=== PATIENT | male | born 1960 | race Caucasian/White ===

== ENCOUNTER 2024-11-14 08:13 | Outpatient (REF) | payer OTHER, SELFPAY ==
--- OUTSIDE RECORDS SUMMARY | 2024-11-14 08:32 | XMS_ITS ---
Author Name [facility] Organization Unknown History of Medication Use Medication Directions Dispensed Refills Start Date End Date Stat meloxicam (MOBIC) 15 MG tablet Take 1 tablet (15 mg total) by mouth daily. 03/06/2024 active gabapentin (NEURONTIN) 300 MG capsule Take 2 capsules (600 mg total) by mouth nightly. 09/12/2023 active valsartan (DIOVAN) 40 MG tablet Take 1 tablet (40 mg total) by mouth every evening. 08/26/2023 active methocarbamol (ROBAXIN) 750 MG tablet Take 1 tablet (750 mg total) by mouth 2 times a day. 09/12/2023 active sildenafil (VIAGRA) 100 MG tablet Take 1 tablet (100 mg total) by mouth daily as needed. 08/26/2023 active OMEprazole 20 MG Tablet Delayed Response Take 20 mg by mouth as needed. 08/26/2023 active tamsulosin (FLOMAX) 0.4 MG capsule Take 1 capsule (0.4 mg total) by mouth daily. 09/17/2023 active Vitamin D3 (CHOLECALCIFEROL) 50 MCG (2000 UT) tablet Take 2 tablets (4,000 Units total) by mouth daily. 09/12/2023 active zinc sulfate (ZINCATE) 220 mg capsule Take 1 capsule (220 mg total) by mouth daily. 09/12/2023 active calcium carbonate (Calcium 600) 600 MG tablet Take 1 tablet (600 mg total) by mouth 2 (two) times a day with meals. 09/12/2023 active acetaminophen (TYLENOL) 500 MG tablet Take 2 tablets (1,000 mg total) by mouth 3 (three) times a day with meals. 09/12/2023 active rivaroxaban (XARELTO) 10 MG tablet Take 1 tablet (10 mg total) by mouth daily. Take after surgery as directed to prevent blood clots 09/12/2023 active acetaminophen (TYLENOL) 325 MG tablet Take 3 tablets (975 mg total) by mouth 4 (four) times a day as needed for mild pain. 09/17/2023 active oxyCODONE (ROXICODONE) 5 MG immediate release tablet Take 1 tablet (5 mg total) by mouth 4 times daily (every 6 hours) as needed for severe pain. TAKE AFTER RIGHT TOTAL ANKLE REPLACEMENT SURGERY BY DR. MOTA NEEDED FOR PAIN. DX: RIGHT ANKLE OA. PARTIAL FILL ON REQUEST Max Daily Amount: 20 mg 09/12/2023 active oxyCODONE (ROXICODONE) 5 MG immediate release tablet Take 1-2 tablets (5-10 mg total) by mouth every 4 (four) hours as needed for severe pain. Max Daily Amount: 60 mg 09/17/2023 active Problems Problem Status Onset Date Problem Type Date of Resoluti on Source Hemochromatosis active ProblemAct [facility] ED (erectile dysfunction) active ProblemAct [facility] Hypertension active ProblemAct [facility] Primary osteoarthritis of right ankle active 2023-08-24 ProblemAct [facility]
[2024-11-14 08:40] LABS: MANUAL DIFF FLAG NO
[2024-11-14 08:41] LABS: Basophils Absolute Auto 0.1 X10*3/uL (0.0-0.2); Eosinophils Absolute Auto 0.4 X10*3/uL (0.0-0.4); Eosinophils Percent Auto 6.8 % (0-4); Hematocrit 46.2 % (42.0-52.0); Hemoglobin 15.7 g/dl (14.0-18.0); Imm Gran Abs Auto 0.01 X10*3/uL (0.00-0.03); Imm Gran Pct Auto 0.2 % (0.0-0.4); Lymphocytes Percent Auto 34.1 % (20-40); Mean Corpuscular Hemoglobin 28.9 pg (27.0-33.0); Mean Corpuscular Volume 84.9 fL (80.0-98.0); Mean Platelet Volume 8.8 fL (9.4-12.4); Monocytes Absolute Auto 0.8 X10*3/uL (0.1-1.2); Monocytes Percent Auto 12.9 % (2-11); Neutrophils Absolute Auto 2.7 x10*3/uL (2.0-8.3); Platelet Count 243 X10*3/uL (160-400); Red Blood Count 5.44 X10*6/uL (4.60-5.80); Red Cell Distribution Width 15.1 % (11.0-16.0)
[2024-11-14 09:16] LABS: Iron 108 mcg/dL (45-160); Percent Iron Saturation 36 % (15-50); Total Iron Binding Capacity 296 mcg/dL (228-428); Unsaturated Iron Binding 188 ug/dL
[2024-11-14 09:32] LABS: Ferritin 20 ng/mL (20-250)
== END 2024-11-14 08:14 | disposition home or self-care (01) ==
LOC: HO.BBR 08:13
PROVIDERS: Visit Provider Internal Medicine Gastroenterology
DX: E83.110 Hereditary hemochromatosis (principal)
CPT/HCPCS: 36415; 82728; 83540; 85025

== ENCOUNTER 2025-06-03 10:03 | Outpatient (REF) | payer MEDICARE, SELFPAY ==
[2025-06-03 10:13] LABS: MANUAL DIFF FLAG NO
[2025-06-03 10:15] LABS: Hematocrit 44.0 % (42.0-52.0); Hemoglobin 14.9 g/dl (14.0-18.0); Imm Gran Abs Auto 0.01 X10*3/uL (0.00-0.03); Imm Gran Pct Auto 0.2 % (0.0-0.4); Lymphocytes Absolute Auto 1.9 X10*3/uL (1.2-4.9); Mean Corpuscular HGB Conc 33.9 g/dl (31.0-36.0); Mean Corpuscular Hemoglobin 28.5 pg (27.0-33.0); Mean Corpuscular Volume 84.3 fL (80.0-98.0); NRBC Abs Auto 0.000 X10*3/uL (0.0-0.012); NRBC Pct Auto 0.0 /100WBC (0.0-0.2); Platelet Count 217 X10*3/uL (160-400); Red Blood Count 5.22 X10*6/uL (4.60-5.80); White Blood Count 5.5 X10*3/uL (4.8-10.8)
--- OUTSIDE RECORDS SUMMARY | 2025-06-03 10:34 | XMS_ITS ---
Author Name [facility] Organization Unknown History of Medication Use Medication Directions Dispensed Refills Start Date End Date Stat us meloxicam (MOBIC) 15 MG tablet Take 1 tablet (15 mg total) by mouth daily. 03/04/2024 active tamsulosin (FLOMAX) 0.4 MG capsule Take 1 capsule (0.4 mg total) by mouth daily. 09/15/2023 10/16/2023 active calcium carbonate (Calcium 600) 600 MG tablet Take 1 tablet (600 mg total) by mouth 2 (two) times a day with meals. 09/10/2023 active gabapentin (NEURONTIN) 300 MG capsule Take 2 capsules (600 mg total) by mouth nightly. 09/10/2023 active sildenafil (VIAGRA) 100 MG tablet Take 1 tablet (100 mg total) by mouth daily as needed. 12/04/2022 active OMEprazole 20 MG Tablet Delayed Response Take 20 mg by mouth as needed. active Allergies Allergen Reaction Severity Comment Documented Date Source Statu s PINE NUT HIVES 07/30/2017 [facility] active PENICILLINS UNKNOWN/PATIENT AND FAMILY UNABLE TO DEFINE [facility] Problems Problem Status Onset Date Problem Type Date of Resoluti on Source Primary osteoarthritis of right ankle active 2023-08-24 [facility]Act [facility] Hypertension active [facility] (erectile dysfunction) active ProblemAct [facility] Hemochromatosis active ProblemAct [facility] Encounters Encounter Type Encounter Reason Primary Diagnosis Location Date Ambulatory [facility] 06/24/2024 Ambulatory Primary osteoarthritis, right ankle and foot Primary osteoarthritis, right ankle and foot [facility] 06/24/2024 Ambulatory [facility] 03/04/2024 Ambulatory Secondary osteoarthritis, right ankle and foot Secondary osteoarthritis, right ankle and foot [facility] 03/04/2024 Ambulatory Primary osteoarthritis, right ankle and foot Primary osteoarthritis, right ankle and foot [facility] 01/01/2024 Ambulatory Primary osteoarthritis, right ankle and foot Primary osteoarthritis, right ankle and foot [facility] 01/01/2024 Ambulatory Primary osteoarthritis, right ankle and foot Primary osteoarthritis, right ankle and foot [facility] 11/27/2023 Ambulatory Primary osteoarthritis, right ankle and foot Primary osteoarthritis, right ankle and foot [facility] 11/27/2023 Ambulatory [facility] 10/23/2023 Ambulatory Primary osteoarthritis, right ankle and foot Primary osteoarthritis, right ankle and foot [facility] 10/23/2023 Ambulatory Primary osteoarthritis, right ankle and foot Primary osteoarthritis, right ankle and foot [facility] 10/02/2023 Ambulatory Primary osteoarthritis, right ankle and foot Primary osteoarthritis, right ankle and foot [facility] 10/02/2023 Ambulatory Primary osteoarthritis, right ankle and foot Primary osteoarthritis, right ankle and foot [facility] 09/18/2023 Ambulatory Primary osteoarthritis, right ankle and foot Primary osteoarthritis, right ankle and foot [facility] 09/18/2023 Ambulatory Primary osteoarthritis, right ankle and foot Primary osteoarthritis, right ankle and foot [facility] 09/14/2023 Ambulatory Encounter for other preprocedural examination Encounter for other preprocedural examination [facility] 08/24/2023 Ambulatory Primary osteoarthritis, unspecified ankle and foot Primary osteoarthritis, unspecified ankle and foot [facility] 07/10/2023 Care Team Organization Name Specialty Phone Email Start Date End Da ajlen [facility] 09/11/2023 09/11/2023 [facility] 07/10/2023 01/14/2025 [facility] 07/10/2023 09/19/2023
--- OUTSIDE RECORDS SUMMARY | 2025-06-03 10:34 | XMS_ITS | Encounter Summary ---
Author Organization Formerly [facility] Address [address] [place] [address] Care Team Providers Care Wire Technician Name Role Phone Cezar Garrison DO Primary Care Provider [phone] Dimitry Wong MD Unavailable [phone] Encounter Details Date Type Department Care Team (Late st Contact Info) Description 04/10/2023 Scanned Document [place] [address] Provider, Generic Social History Tobacco Use Types Packs/Day Years Used Date Smoking Tobacco: Never Assessed Sex and Gender Information Value Date Recorded Sex Assigned at Male 06/12/2023 10:08 AM EDT Legal Sex Male 11:46 AM EDT Gender Identity Male 06/12/2023 10:08 AM EDT Sexual Orientation Other 06/12/2023 10 :08 AM EDT documented as of this encounter Plan of Treatment Not on file documented as of this encounter Visit Diagnoses Not on filedocumented in this encounter Care Teams Wire Technician Relationship Specialty Start Date End Date Cezar Garrison DO [address] [facility] [place] [id number] PCP - General Family Medicine 07/10/23 Dimitry Wong MD [address] [address] Surgery, Orthopedic 08/24/23 documented as of this encounter
--- OUTSIDE RECORDS SUMMARY | 2025-06-03 10:34 | XMS_ITS | Encounter Summary ---
Author Organization [facility] Address [address] [place] [address] [place] [address] Phone Care Team Providers Care Milking Machine Operator Name Role Phone Cezar Garrison DO Unavailable Cezar Garrison DO Primary Care Provider Cezar Garrison Remberto DO Unavailable Encounter Details Date Type Department Care Team (Latest Contact Info) Description 10/30/2023 Transcribe Orders Virtual Department [address] [place] [address] Enrique Shepard MD [address] [place] [address] [email or web address] Hepatoma (Primary Dx) Social History Tobacco Use Types Packs/Day Years Used Date Smoking Tobacco: Never Smokeless Tobacco: Never Alcohol Use Standard Drinks/Week Comments Yes 0 (1 standard drink = 0.6 oz pure alcohol) 1-2 times a week (1-2 glasses of wine) Child or Family Care Answer Date Record ed Do you have problems with on e of the following making it difficult for you to work, study, or receive health care? No 09/28/2023 Education Answer Date Recorded Are you interested in help w ith more adult education (for example, completing high school, GED, job training, learning the [place] language, technical skills, or developing parenting skills)? No 09/28/2023 Are you concerned about learning? Not on file 09/28/2023 No 09/28/2023 Yes 09/28/2023 Food Answer Date Recorded Within the past 6 months we worried whether our food would run out before we got money to buy more. Never True 09/28/2023 Within the past 6 months the food we bought just didn't last and we didn't have enough money to get more. Never True Residential Stability Answer Date Recor ded What is your housing situation today? I have [facility] 09/28/2023 How many times have you move d in the past 12 months? Zero (I did not move) 09/28/2023 Paying for Meds Answer Date Recorded Do you have trouble paying for medicines? No 09/28/2023 Paying Utility Bills Answer Date Record ed Do you have trouble paying your heating or elect ricity bill? No 09/28/2023 Transportation Answer Date Recorded Has the lack of transportati on kept you from medical appointments or from getting medications? No 09/28/2023 Unemployment Answer Date Recorded Are you currently unemployed or working on a part-time or temporary basis, and looking for work? No 09/21/2022 Digital Access Answer Date Recorded No 09/28/2023 Yes 09/28/2023 Do you have reliable internet access at home? Ye s 09/28/2023 Do you have a device (e.g., phone, tablet, computer) with a working camera? Yes 09/28/2023 Intimate Partner Violence Answer Date R ecorded Denied Basic Needs Not on file 09/28/2023 In the past 12 months have y ou been in a relationship with a person who hurts, threatens, or tries to control you? No 09/28/2023 Worried food would run out Not on file 09/28 In the past 12 months have y ou been in a relationship with a person who hurts, threatens, or tries to control you? No 09/28/2023 Sex and Gender Information Value Date Recorded Sex Assigned at Not on file Legal Sex Male 9:51 PM EDT Gender Identity Not on file Sexual Orientation Not on file Occupation Industry Job Start Date Job End Date retired- teacher Not on file Not on file Not on file documented as of this encounter Plan of Treatment Upcoming Encounters Date Type Department Care Team (Late st Contact Info) Description 07/03/2025 7:45 AM EDT Appointment [facility] - [address] [place] [address] Enrique Shepard MD [address] [place] [phone] 07/10/2025 8:50 AM EDT Procedure visit Department of Urology [address] [address] Ruslan Archer MD [address] [address] 08/18/2025 1:00 PM EDT Infusion [facility] [address] [place] [address] Enrique Shepard MD [address] [place] [address] 08/19/2025 Procedure Pass [facility] Endoscopy Admitting Dept Virtual Department [address] [place] [address] 08/19/2025 7:30 AM EDT Office Visit [facility] [address] [place] [address] [address] Floor, [address] [place] [address] Srinivasan Moss DO [address] [facility] [address] [place] [address] 08/19/2025 9:00 AM EDT Hospital Encounter [facility] Endoscopy Admitting Dept Virtual Department [address] [place] [address] Enrique Shepard MD [address] [place] [phone] 08/19/2025 9:00 AM EDT - 08/19/2025 9:30 AM EDT Surgery [facility] Endoscopy Admitting Dept Virtual Department [address] [place] [address] Enrique Shepard MD [address] [place] [phone] COLONOSCOPY 11/03/2025 8:00 AM EST Office Visit [facility] [address] [place] [address] Cezar Garrison, DO [address] [facility], [address] [place] [address] [email or web address] 11/10/2025 1:00 PM EST Infusion [facility] [address] [place] [address] Enrique Shepard MD [address] [place] [address] 02/02/2026 1:00 PM EDT Infusion [facility] Infusion [address] [address] Enrique Shepard MD [address] [place] [phone] Scheduled Procedures Name Priority Associated Diagnoses Date/Ti me COLONOSCOPY colon 08/19/2025 9:00 AM EDT documented as of this encounter Results * US ABDOMEN LIMITED RIGHT UPPER QUADRANT (11/23/2023 8:49 AM EST) Anatomical Region Laterality Modality Abdomen Ultrasound 11/23/2023 9:09 AM EST Impressions 11/23/2023 1:54 PM EST No definite sonographic evidence of cirrhosis. Redemonstration of hepatic cysts measuring up to 1.4 cm at the right hepatic lobe, similar Narrative 11/23/2023 1:54 PM EST US ABDOMEN LIMITED RIGHT UPPER QUADRANT Referring clinician's provided indication for this examination in Epic: Outside Radiology Order TECHNIQUE: US Abdominal limited right upper quadrant. COMPARISON: Sonography 09/20/2022 and 10/11/2022 FINDINGS: Limitations: Overlying bowel gas and limited acoustic windows Liver: Normal echogenicity. Redemonstration of hepatic cysts measuring up to 0.7 cm at the left hepatic lobe and 1.4 cm at the right hepatic lobe. No solid lesions demonstrated. Main Portal Vein: Patent with normal direction of flow. Gallbladder: No gallstones or gallbladder wall thickening. Packer's Sign: Negative. Biliary: No intrahepatic or extrahepatic biliary ductal dilatation. The common bile duct measures 3 mm. Right Kidney: No stones or hydronephrosis. Procedure Note Philomena Garcia MD - 11/23/2023 US ABDOMEN LIMITED RIGHT UPPER QUADRANT Referring clinician's provided indication for this examination in Epic:Outside Radiology Order TECHNIQUE: US Abdominal limited right upper quadrant. COMPARISON: Sonography 09/20/2022 and 10/11/2022 FINDINGS: Limitations: Overlying bowel gas and limited acoustic windows Liver: Normal echogenicity. Redemonstration of hepatic cysts measuring upto 0.7 cm at the left hepatic lobe and 1.4 cm at the right hepatic lobe.No solid lesions demonstrated. Main Portal Vein: Patent with normal direction of flow. Gallbladder: No gallstones or gallbladder wall thickening. Packer's Sign: Negative. Biliary: No intrahepatic or extrahepatic biliary ductal dilatation. The common bile duct measures 3 mm. Right Kidney: No stones or hydronephrosis. IMPRESSION: No definite sonographic evidence of cirrhosis. Redemonstration of hepaticcysts measuring up to 1.4 cm at the right hepatic lobe, similar Enrique Shepard MD IMG US ABDOMEN Final Result documented in this encounter Visit Diagnoses Diagnosis Hepatoma- Primary Malignant neoplasm of liver, primary Hepatoma Malignant neoplasm of liver, primary documented in this encounter Additional Health Concerns Infection Onset Date Last Indicated Resolved Time CoV-Risk 06/01/2024 06/06/2024 06/17/2024 1:22 AM EDT Assessment Noted Time PHQ-2 Depression Total Score: 0 09/28/20 11:52 AM EST documented as of this encounter Care Teams Milking Machine Operator Relationship Specialty Start Date End Date Cezar Garrison DO [address] [facility], [facility] [address] [place] [address] PCP - General Family Medicine 09/11/17 Cezar Garrison DO [address] [facility], [facility] [address] [place] [address] [email or web address] Historical LMR Provider 08/14/17 Cezar Garrison DO [address] [facility], [facility] [address] [place] [address] [email or web address] Insurance Assigned Provider 02/02/24 documented as of this encounter Additional Source Comments The information contained in this document represents components of the legal health record. It is not the complete legal health record.[facility]
[2025-06-03 11:29] LABS: Iron 84 mcg/dL (45-160); Percent Iron Saturation 30 % (15-50); Total Iron Binding Capacity 277 mcg/dL (228-428); Unsaturated Iron Binding 193 ug/dL
[2025-06-03 11:48] LABS: Ferritin 24 ng/mL (20-250)
== END 2025-06-03 10:04 | disposition home or self-care (01) ==
LOC: HO.BBR 10:03
PROVIDERS: Visit Provider Internal Medicine Gastroenterology
DX: E83.110 Hereditary hemochromatosis (principal)
CPT/HCPCS: 36415; 82728; 83540; 85025